=== PATIENT | male | born 1940 | race Caucasian/White ===

== ENCOUNTER → 2016-12-04 | Outpatient (CLI) | payer MEDICARE ==
[2016-12-04 08:37] LABS: Basophils # (A) 0.1 k/uL (0-0.2); Basophils % (A) 1 %; CH 32.7; CHCM 33.8; Eosinophils # (A) 0.5 k/uL (0-0.7); Eosinophils % (A) 7 %; HDW 2.34; HGB 15.9 gm/dL (13.0-17.5); Luc # (Auto) 0.25; Luc % (Auto) 4; Lymphocytes # (A) 2.8 k/uL (1.0-4.8); Lymphocytes % (A) 43 %; MCH 30.9 pg (25.0-35.0); MCHC 31.8 g/dL (31.0-37.0); MCV 97.2 fL (80.0-100.0); Mean Platelet Volume 7.6; Monocytes # (A) 0.3 k/uL (0-1.0); Monocytes % (A) 4 %; Neutrophils # (A) 2.7 k/uL (1.3-7.7); Neutrophils % (A) 42 %; RBC 5.14 m/uL (4.30-5.90); RDW 13.4 % (11.5-15.5); WBC 6.5 k/uL (3.8-10.6); WBC (Perox) 6.32
[2016-12-04 10:50] LABS: ALT 52 U/L (21-72); AST 36 U/L (17-59); Alkaline Phosphatase 110 U/L (38-126); Anion Gap 13 mmol/L; Blood Urea Nitrogen 18 mg/dL (9-20); Calcium 10.2 mg/dL (8.4-10.2); Carbon Dioxide 28 mmol/L (22-30); Chloride 102 mmol/L (98-107); Cholesterol 285 mg/dL (<200); Glucose 92 mg/dL (74-99); HDL Cholesterol 67 mg/dL (40-60); Non-African American GFR(MDRD) >60 (>60 ml/min/1.73 sqM); Potassium 4.6 mmol/L (3.5-5.1); Sodium 143 mmol/L (137-145); Total Bilirubin 0.7 mg/dL (0.2-1.3); Total Protein 7.5 g/dL (6.3-8.2)
[2016-12-04 11:20] LABS: Prostate Specific Antigen 0.25 ng/mL (0.00-4.00)
== END | disposition home or self-care (01) ==
LOC: LABWHC1 08:08
PROVIDERS: ATTEND Internal Medicine
DX: Z00.00 Encounter for general adult medical examination without abnormal findings (principal); N40.0 Benign prostatic hyperplasia without lower urinary tract symptoms; E78.5 Hyperlipidemia, unspecified; I10 Essential (primary) hypertension; E55.9 Vitamin D deficiency, unspecified
CPT/HCPCS: 36415; 80053; 80061; 82306; 84153; 84439; 84443; 85025

== ENCOUNTER → 2017-12-02 | Outpatient (CLI) | payer MEDICARE ==
[2017-12-02 09:34] LABS: Basophils % (A) 1 %; Eosinophils # (A) 0.2 k/uL (0-0.7); Eosinophils % (A) 4 %; HCT 43.5 % (39.0-53.0); HGB 15.1 gm/dL (13.0-17.5); Lymphocytes # (A) 1.9 k/uL (1.0-4.8); Lymphocytes % (A) 45 %; MCH 32.4 pg (25.0-35.0); MCHC 34.8 g/dL (31.0-37.0); MCV 93.2 fL (80.0-100.0); Mean Platelet Volume 7.1; Monocytes # (A) 0.2 k/uL (0-1.0); Monocytes % (A) 5 %; Neutrophils # (A) 1.8 k/uL (1.3-7.7); Neutrophils % (A) 43 %; Platelet Count 204 k/uL (150-450); RBC 4.67 m/uL (4.30-5.90); RDW 12.5 % (11.5-15.5); WBC 4.2 k/uL (3.8-10.6)
[2017-12-02 09:51] LABS: ALT 42 U/L (21-72); AST 35 U/L (17-59); Albumin 4.5 g/dL (3.5-5.0); Alkaline Phosphatase 79 U/L (38-126); Anion Gap 10 mmol/L; Blood Urea Nitrogen 16 mg/dL (9-20); Calcium 9.9 mg/dL (8.4-10.2); Carbon Dioxide 28 mmol/L (22-30); Chloride 103 mmol/L (98-107); Cholesterol 244 mg/dL (<200); Glucose 92 mg/dL (74-99); HDL Cholesterol 77 mg/dL (40-60); LDL Cholesterol,Calculated 128 mg/dL (0-99); Potassium 4.6 mmol/L (3.5-5.1); Sodium 141 mmol/L (137-145); Total Bilirubin 0.7 mg/dL (0.2-1.3); Total Protein 7.4 g/dL (6.3-8.2); Triglycerides 196 mg/dL (<150)
[2017-12-02 10:08] LABS: T4, Free (Free Thyroxine) 0.83 ng/dL (0.78-2.19)
[2017-12-02 10:21] LABS: PSA Annual Screen 0.38 ng/mL (0.00-4.00)
== END | disposition home or self-care (01) ==
LOC: LABWHC1 08:34
PROVIDERS: ATTEND Internal Medicine
DX: E78.5 Hyperlipidemia, unspecified (principal); E03.9 Hypothyroidism, unspecified; Z12.5 Encounter for screening for malignant neoplasm of prostate
CPT/HCPCS: 84439; 80061; 80053; 84443; 85025; 36415; G0103

== ENCOUNTER → 2019-02-03 | Outpatient (CLI) | payer MEDICARE ==
[2019-02-03 10:52] LABS: HCT 45.1 % (39.0-53.0); HGB 15.2 gm/dL (13.0-17.5); MCHC 33.8 g/dL (31.0-37.0); MCV 94.9 fL (80.0-100.0); Mean Platelet Volume 6.9; Platelet Count 230 k/uL (150-450); RBC 4.75 m/uL (4.30-5.90); RDW 12.1 % (11.5-15.5); WBC 5.7 k/uL (3.8-10.6)
[2019-02-03 11:20] LABS: Eosinophils # (M) 0.46 k/uL (0-0.7); Lymphocytes # (M) 2.79 k/uL (1.0-4.8); Monocytes # (M) 0.34 k/uL (0-1.0); Neutrophils % (M) 37 %; Nucleated Red Blood Cells 0 /100 WBC (0-0); Total Cells Counted 100
[2019-02-03 18:33] LABS: African American GFR (CKD) 99.9 (60.0-200.0); Albumin 4.7 g/dL (3.80-4.90); Albumin/Globulin Ratio 2.04 (1.60-3.17); Anion Gap 8.4 mmol/L (4.00-12.00); BUN/Creat Ratio 21.25 Ratio (12.00-20.00); Calcium 9.9 mg/dL (8.7-10.3); Carbon Dioxide 29.6 mmol/L (21.6-31.8); Chol/HDL Ratio 3.5; Globulin 2.3 g/dL (1.6-3.3); LDL Cholesterol,Calculated 134.2 mg/dL (0.0-131.0); Potassium 4.3 mmol/L (3.5-5.5); Total Bilirubin 0.7 mg/dL (0.3-1.2); VLDL Calculation 60.8 mg/dL (5.00-40.00)
[2019-02-03 18:41] LABS: T4, Free (Free Thyroxine) 0.9 ng/dL (0.80-1.80)
[2019-02-03 19:00] LABS: Cyclic Citrull Pep IgG Unit 0.9 U/mL; Cyclic Citrullinated Pep IgG NEGATIVE (NEGATIVE)
[2019-02-03 19:06] LABS: Rheumatoid Factor 71 IU/mL (0-15)
== END | disposition home or self-care (01) ==
LOC: LABWHC1 07:58
PROVIDERS: ATTEND Internal Medicine
DX: Z00.00 Encounter for general adult medical examination without abnormal findings (principal); E78.5 Hyperlipidemia, unspecified; M19.90 Unspecified osteoarthritis, unspecified site; Z12.5 Encounter for screening for malignant neoplasm of prostate
CPT/HCPCS: 84439; 80061; 80053; 84443; 85025; 86431; 86200; 36415; G0103

== ENCOUNTER → 2019-06-17 | Outpatient (CLI) | payer MEDICARE | END | disposition home or self-care (01) | LOC: LABWHC1 07:50 | PROVIDERS: ATTEND Internal Medicine | DX: M10.9 Gout, unspecified (principal) | CPT/HCPCS: 36415; 84550 ==

== ENCOUNTER → 2020-02-10 | Outpatient (CLI) | payer MEDICARE ==
[2020-02-10 08:22] LABS: Basophils % (A) 1 %; Eosinophils # (A) 0.4 k/uL (0-0.7); Eosinophils % (A) 6 %; HCT 50.3 % (39.0-53.0); HGB 16.3 gm/dL (13.0-17.5); Lymphocytes # (A) 2.8 k/uL (1.0-4.8); Lymphocytes % (A) 46 %; MCH 31.5 pg (25.0-35.0); MCHC 32.5 g/dL (31.0-37.0); Mean Platelet Volume 7.9; Monocytes # (A) 0.3 k/uL (0-1.0); Monocytes % (A) 5 %; Neutrophils # (A) 2.5 k/uL (1.3-7.7); Neutrophils % (A) 40 %; Platelet Count 245 k/uL (150-450); RBC 5.18 m/uL (4.30-5.90); RDW 12.5 % (11.5-15.5); WBC 6.2 k/uL (3.8-10.6)
[2020-02-10 10:52] LABS: African American GFR (CKD) 83.2 (60.0-200.0); Albumin 4.7 g/dL (3.80-4.90); Albumin/Globulin Ratio 1.81 (1.60-3.17); Anion Gap 8.1 mmol/L (4.00-12.00); Calcium 10.2 mg/dL (8.7-10.3); Carbon Dioxide 31.9 mmol/L (21.6-31.8); Chol/HDL Ratio 3.77; Globulin 2.6 g/dL (1.6-3.3); LDL Cholesterol,Calculated 133.2 mg/dL (0.0-131.0); Non-African American GFR(CKD) 71.8 (60.0-200.0); Total Bilirubin 0.6 mg/dL (0.2-1.2); Total Protein 7.3 g/dL (6.2-8.2); Uric Acid 7.9 mg/dL (3.7-8.7); VLDL Calculation 60.8 mg/dL (5.00-40.00)
[2020-02-10 11:06] LABS: Prostate Specific Antigen 0.4 ng/mL (0.0-6.5)
== END | disposition home or self-care (01) ==
LOC: LABWHC1 07:28
PROVIDERS: ATTEND Internal Medicine
DX: Z00.00 Encounter for general adult medical examination without abnormal findings (principal); E78.5 Hyperlipidemia, unspecified; M10.9 Gout, unspecified; I10 Essential (primary) hypertension
CPT/HCPCS: 36415; 80053; 80061; 84153; 84550; 85025

== ENCOUNTER 2020-10-17 11:12 | Emergency (ER) | payer MEDICARE ==
[2020-10-17 11:38] VITALS: BP 164/85; PULSE 89; RESP 20; TEMP 98.3
[2020-10-17] MEDS ORDERED: KETOROLAC 15 MG/ML 1 ML VIAL IM STA (12:36)
[2020-10-17] MEDS ORDERED: HYDROmorphone 0.5 MG/0.5 ML SYRINGE IVP STA (12:36)
[2020-10-17] MEDS ORDERED: CYCLOBENZAPRINE 10 MG TAB PO STA (12:37)
--- NOTE | 2020-10-17 12:44 | ED ---
General Adult HPI - General Chief complaint: Back Pain/Injury Stated complaint: Back pain Time Seen by Provider: 10/17/20 12:00 Source: patient, RN notes reviewed, old records reviewed Mode of arrival: ambulatory Limitations: no limitations - History of Present Illness Initial comments: This is a 80-year-old male comes in complaining of right upper back pain that radiates from the upper right back about the scapular area down to the lower ribs on that side. Patient states it all started after he was using a 2 gallon water bottle and was watering with it but using it in the pendulum sort of way swinging it out front of him while he was watering he states after that he started having quite a bit of pain in that area and it is reproducible to touch movement or deep breathing. Patient denies any shortness of breath patient denies any chest pain patient denies any diaphoretic episodes. Patient denies any abdominal pain. Patient denies any recent fever chills or cough. - Related Data Previous Rx's Medication Instructions Recorded Azithromycin [Zithromax Tri-Adin] 500 mg PO DAILY #3 tab 10/17/20 Cyclobenzaprine [Flexeril] 10 mg PO TID #20 tab 10/17/20 Ibuprofen [Motrin] 600 mg PO Q6HR PRN #20 tab 10/17/20 Allergies Allergy/AdvReac Type Severity Reaction Status Date / Time Iodinated Contrast Media Allergy Rash/Hives Verified 10/17/20 11:38 Review of Systems ROS Statement: Those systems with pertinent positive or pertinent negative responses have been documented in the HPI. ROS Other: All systems not noted in ROS Statement are negative. Past Medical History Past Medical History: GERD/Reflux, Hyperlipidemia Additional Past Medical History / Comment(s): Back, enlarge prostate History of Any Multi-Drug Resistant Organisms: None Reported Past Surgical History: Appendectomy Additional Past Surgical History / Comment(s): Sinus Past Psychological History: No Psychological Hx Reported Smoking Status: Never smoker Past Alcohol Use History: None Reported Past Drug Use History: None Reported General Exam - General Exam Comments Initial Comments: GENERAL: Patient is well-developed and well-nourished. Patient is nontoxic and well- hydrated and is in mild distress. ENT: Neck is soft and supple. No significant lymphadenopathy is noted. Oropharynx is clear. Moist mucous membranes. Neck has full range of motion without eliciting any pain EYES: The sclera were anicteric and conjunctiva were pink and moist. Extraocular movements were intact and pupils were equal round and reactive to light. Eyelids were unremarkable. PULMONARY: Unlabored respirations. Good breath sounds bilaterally. No audible rales rhonchi or wheezing was noted. CARDIOVASCULAR: There is a regular rate and rhythm without any murmurs gallops or rubs. Patient has reproducible pain in the right lower posterior thoracic area along the ribs. Patient is comfortable at rest but with movement deep breathing or me palpating causes him the pain that he came in to have us assess. ABDOMEN: Soft and nontender with normal bowel sounds. SKIN: Skin is clear with no lesions or rashes and otherwise unremarkable. NEUROLOGIC: Patient is alert and oriented x3. Cranial nerves II through XII are grossly intact. Motor and sensory are also intact. Normal speech, volume and content. Symmetrical smile. MUSCULOSKELETAL: Normal extremities with adequate strength and full range of motion. LYMPHATICS: No significant lymphadenopathy is noted PSYCHIATRIC: Normal psychiatric evaluation. Limitations: no limitations Course Vital Signs 10/17/20 11:34 Temperature 98.3 F Pulse Rate 89 Respiratory 20 Rate Blood Pressure 164/85 O2 Sat by Pulse 96 Oximetry Medical Decision Making - Medical Decision Making Chest x-ray showed questionable pneumonia particularly on the lateral view. I went back and discussed with the patient he states the last 3 days he has been coughing quite a bit he just thought it was ALLERGIES. Patient states he has no difficult breathing shortness of breath. I decided to give the patient Zithromax and tell him to follow up this week with Dr. Valenzuela for repeat x-ray to see if is any improvement. Patient aware that anything is worsened he is to follow-up with him earlier or come the emergency department. I gave the patient Toradol and Dilaudid in the emergency department as well as Flexeril he feels considerably better. Disposition Clinical Impression: Thoracic back pain, Pneumonia Disposition: HOME SELF-CARE Condition: Good Instructions (If sedation given, give patient instructions): Back Pain (ED) Prescriptions: Cyclobenzaprine [Flexeril] 10 mg PO TID #20 tab Ibuprofen [Motrin] 600 mg PO Q6HR PRN #20 tab PRN Reason: For pain Azithromycin [Zithromax Tri-Adin] 500 mg PO DAILY #3 tab Is patient prescribed a controlled substance at d/c from ED?: No Referrals: Noman Valenzuela MD [Primary Care Provider] - 1-2 days Time of Disposition: 14:02
--- NOTE | 2020-10-17 13:33 | XR ---
EXAMINATION TYPE: XR chest 2V DATE OF EXAM: 10/17/2020 COMPARISON: None HISTORY: 80 year-old male shortness of breath, difficulty breathing, posterior chest/back pain. TECHNIQUE: PA and lateral views FINDINGS: Heart upper limits of normal in size. There is focal posterior basilar consolidation best seen on the lateral view. Mild hyperinflation. No sizable effusion. IMPRESSION: Posterior basilar airspace disease suggestive of pneumonia. Follow-up after treatment to assess for c learance.
== END 2020-10-17 14:09 | disposition home or self-care (01) ==
LOC: EC 11:12
DX: M54.6 Pain in thoracic spine (principal); J18.9 Pneumonia, unspecified organism; E78.5 Hyperlipidemia, unspecified; K21.9 Gastro-esophageal reflux disease without esophagitis; Z79.899 Other long term (current) drug therapy
CPT/HCPCS: 71046; 96374; 96372; 99283; J1885; J1170

== ENCOUNTER 2020-10-21 14:04 | Observation (INO) | payer MEDICARE ==
[2020-10-21] MEDS ORDERED: HEPARIN SODIUM 1,000 UN/ML (10ML VL) IV ONE (14:20)
[2020-10-21] MEDS ORDERED: HEPARIN SODIUM 1,000 UN/ML (10ML VL) IV PRN (14:20)
--- NOTE | 2020-10-21 14:34 | ED ---
General Adult HPI - General Chief complaint: Recheck/Abnormal Lab/Rx Stated complaint: Poss blood clot Time Seen by Provider: 10/21/20 14:17 Source: patient Mode of arrival: wheelchair Limitations: physical limitation - History of Present Illness Initial comments: Dictation was produced using [employer] dictation software. please excuse any grammatical, word or spelling errors. Chief Complaint: 80-year-old male presents to the emergency department for abnormal CT angios the chest History of Present Illness: Patient 80-year-old male he was sent in from radiology for abnormal CT. Patient had a CT performed earlier today that showed pulmonary emboli. Patient was seen in emergency department 4 days ago for chest pain. At that time is assumed that patient's pain was from a musculoskeletal strain. He went to his pulmonology's office he was evaluated. Patient allegedly had some hemoptysis episodes 2 or [address] was ordered. CT showed small filling defects within the second and third order branches of the lower lobes bilaterally. Denies any leg symptoms. No history of cancer. The ROS documented in this emergency department record has been reviewed and confirmed by me. Those systems with pertinent positive or negative responses have been documented in the HPI. All other systems are other negative and/or noncontributory. PHYSICAL EXAM: General Impression: Alert and oriented x3, not in acute distress HEENT: Normocephalic atraumatic, extra-ocular movements intact, pupils equal and reactive to light bilaterally, mucous membranes moist. Cardiovascular: Heart regular rate and rhythm Chest: Able to complete full sentences, no retractions, no tachypnea Abdomen: abdomen soft, non-tender, non-distended, no organomegaly Musculoskeletal: Pulses present and equal in all extremities, no peripheral edema Motor: no focal deficits noted Neurological: CN II-XII grossly intact, no focal motor or sensory deficits noted Skin: Intact with no visualized rashes Psych: Normal affect and mood ED course: 80-year-old male presents to the emergency Department for pulmonary emboli. On arrival are within acceptable limits. Patient is not hypoxic. CT report was reviewed. I bedside patient appears well. He is not hypoxic or showing a signs of respiratory distress. Patient started on heparin.Laboratories unremarkable. Patient be admitted to [facility] with pulmonology on consult. EKG interpretation: Ventricular rate he 5, normal sinus rhythm,. Interval 1:30, QRS 94, QTC 437. No SC prolongation, no QTC prolongation, no ST or T-wave changes noted. Overall, this EKG is unremarkable - Related Data Previous Rx's Medication Instructions Recorded Azithromycin [Zithromax Tri-Adin] 500 mg PO DAILY #3 tab 10/17/20 Cyclobenzaprine [Flexeril] 10 mg PO TID #20 tab 10/17/20 Ibuprofen [Motrin] 600 mg PO Q6HR PRN #20 tab 10/17/20 Allergies Allergy/AdvReac Type Severity Reaction Status Date / Time Iodinated Contrast Media Allergy Rash/Hives Verified 10/21/20 14:12 Review of Systems ROS Statement: Those systems with pertinent positive or pertinent negative responses have been documented in the HPI. ROS Other: All systems not noted in ROS Statement are negative. Past Medical History Past Medical History: GERD/Reflux, Hyperlipidemia, Pulmonary Embolus (PE) Additional Past Medical History / Comment(s): Back, enlarge prostate History of Any Multi-Drug Resistant Organisms: None Reported Past Surgical History: Appendectomy Additional Past Surgical History / Comment(s): Sinus Past Psychological History: No Psychological Hx Reported Smoking Status: Never smoker Past Alcohol Use History: None Reported Past Drug Use History: None Reported General Exam Limitations: physical limitation Course Vital Signs 10/21/20 10/21/20 10/21/20 14:09 14:32 14:51 Temperature 97.9 F Pulse Rate 76 75 80 Respiratory 20 16 18 Rate Blood Pressure 188/96 180/96 185/96 O2 Sat by Pulse 99 99 99 Oximetry Medical Decision Making - Lab Data Result diagrams: 10/21/20 14:43 10/21/20 14:43 Critical Care Time Critical Care Time: Yes Total Critical Care Time: 33 Disposition Clinical Impression: Pulmonary embolism Disposition: ADMITTED IP TO THIS HOSP Condition: Fair Is patient prescribed a controlled substance at d/c from ED?: No
[2020-10-21] MEDS ORDERED: NALOXONE 0.4 MG/ML 1 ML VIAL IV PRN (14:42)
[2020-10-21] MEDS ORDERED: ONDANSETRON 4 MG/2 ML VIAL IVP PRN (14:42)
[2020-10-21] MEDS ORDERED: MORPHINE SULFATE 4 MG/ML SYRINGE IV PRN (14:42)
[2020-10-21] MEDS ORDERED: ACETAMINOPHEN TAB 325 MG TAB PO PRN (14:42)
[2020-10-21] MEDS ORDERED: SODIUM CHLORIDE 0.9% 1,000 ML IV SCH (14:45)
[2020-10-21 14:53] VITALS: RESP 18
[2020-10-21 15:06] LABS: Basophils % (A) 1 %; Eosinophils % (A) 0 %; HCT 40.9 % (39.0-53.0); HGB 13.7 gm/dL (13.0-17.5); Lymphocytes # (A) 0.7 k/uL (1.0-4.8); Lymphocytes % (A) 12 %; MCH 31.1 pg (25.0-35.0); MCHC 33.5 g/dL (31.0-37.0); MCV 92.8 fL (80.0-100.0); Mean Platelet Volume 7.9; Monocytes # (A) 0.2 k/uL (0-1.0); Monocytes % (A) 3 %; Neutrophils % (A) 83 %; Platelet Count 296 k/uL (150-450); RDW 12.1 % (11.5-15.5)
[2020-10-21 15:07] LABS: African American GFR (CKD) >90 (>60 ml/min/1.73 sqM); Anion Gap 11 mmol/L; Blood Urea Nitrogen 14 mg/dL (9-20); Calcium 9.9 mg/dL (8.4-10.2); Carbon Dioxide 28 mmol/L (22-30); Chloride 96 mmol/L (98-107); Glucose 107 mg/dL (74-99); Non-African American GFR(CKD) >90 (>60 ml/min/1.73 sqM); Potassium 4.2 mmol/L (3.5-5.1); Sodium 135 mmol/L (137-145)
[2020-10-21] MEDS: PANTOPRAZOLE 40 MG/10 ML VIAL IV SCH (15:11)
[2020-10-21] MEDS: HEPARIN SOD,PORK IN 0.45% NACL 25,000 UNIT in 0.45% NACL 1 250ML.BAG IV SCH (15:13)
[2020-10-21 15:32] LABS: INR 0.9 (<1.2); Partial Thromboplastin Time 23.6 sec (22.0-30.0); Prothrombin Time 10.2 sec (9.0-12.0)
--- NOTE | 2020-10-21 18:14 | P.HPIM ---
History of Present Illness H&P Date: 10/21/20 Chief Complaint: Abnormal CT and chest the chest Mr. Owen is a 80-year-old male with a past medical history of hyperlipidemia, GERD sending for abnormal CT angios of the chest. Patient states that he was seen by Dr. Love for hemoptysis and he ordered a CT angiographic that chest which was showing pulmonary embolism and so he was advised to go to the ER. Patient is currently in the ER with his and daughter at bedside. He mentions that he started to have pain in the right side of his chest near his scapular area for the past couple of days and he thought it could be due to musculoskeletal strain. He was seen for this in the ER 4 days back and had a chest x-ray that was showing questionable pneumonia, so he was given Zithromax and advised to follow up with Dr. Love. Then he started to have hemodialysis for the past 2-3 days, streaks of blood on the tissue paper when his coughing, so he was seen by Dr. Love and eventually had a CT angios which was showing PE. Patient denies having any fevers, night sweats or weight loss. He never smoked. But his mentions that he worked in an [employer] industry for many years. He denies having any cough or difficulty in breathing. He does complain of pain in the right scapular area that is radiating down to his lumbar region the right side. Patient denies having any blood in his stools. He denies having any abdominal pain nausea vomiting or diarrhea. He denies having any hematuria or dysuria. Patient denies having any history of recent travel. No sick contacts. In the ER at the time of admission temperature of 97.9, heart rate 76, respiratory 20, blood pressure 188/96, saturating at 99% on room air. Reviewing the labs from this morning white count of 6, hemoglobin 13.7, platelets 296. Sodium 135, potassium 4.2, chloride 96, bicarbonate 28, BNP 14, creatinine 0.66. Troponin less than 0.012. CT Michelle of the chest showing filling defects in the second and third order branches within the lower lobes bilaterally compatible with pulmonary embolism. There is patchy infiltrate right lower lobe which may reflect developing infarct. Small right pleural effusion. So the patient is started on a heparin drip and admitted with pulmonary consult. Review of Systems REVIEW OF SYSTEMS: CONSTITUTIONAL: No fever, no malaise, no fatigue. HEENT: No headache, no neck stiffness, no blurring of vision CARDIOVASCULAR: no chest pain or palpitations PULMONARY: As per HPI GASTROINTESTINAL: No Abdominal pain nausea vomiting or diarrhea NEUROLOGICAL: No weakness of extremities HEMATOLOGICAL: Denies any bleeding or petechiae. GENITOURINARY: Denies any burning micturition, frequency, or urgency. MUSCULOSKELETAL/RHEUMATOLOGICAL: Denies any joint pain, swelling, or any muscle pain. ENDOCRINE: Denies polyuria polydipsia or heat or cold intolerance The rest of the 14-point review of systems is negative. Past Medical History Past Medical History: GERD/Reflux, Hyperlipidemia, Pulmonary Embolus (PE) Additional Past Medical History / Comment(s): Back, enlarge prostate History of Any Multi-Drug Resistant Organisms: None Reported Past Surgical History: Appendectomy Additional Past Surgical History / Comment(s): Sinus Past Psychological History: No Psychological Hx Reported Smoking Status: Never smoker Past Alcohol Use History: None Reported Past Drug Use History: None Reported Medications and Allergies Home Medications Medication Instructions Recorded Confirmed Type Acetaminophen/Diphenhydramine 1 tab PO HS PRN 10/21/20 10/21/20 History [Tylenol PM 500-25mg] Aspirin EC [Ecotrin Low Dose] 81 mg PO DAILY 10/21/20 10/21/20 History Dutasteride [Avodart] 0.5 mg PO DAILY 10/21/20 10/21/20 History Ezetimibe [Zetia] 10 mg PO DAILY 10/21/20 10/21/20 History Lansoprazole [Prevacid] 30 mg PO DAILY 10/21/20 10/21/20 History Psyllium Husk 100% [Metamucil 6 gm PO TID 10/21/20 10/21/20 History Packet] Allergies Allergy/AdvReac Type Severity Reaction Status Date / Time Iodinated Contrast Media Allergy Rash/Hives Verified 10/21/20 15:50 Physical Exam Vitals: Vital Signs Temp Pulse Resp BP Pulse Ox 10/21/20 14:51 80 18 185/96 99 10/21/20 14:32 75 16 180/96 99 10/21/20 14:09 97.9 F 76 20 188/96 99 Intake and Output 10/21/20 10/21/20 10/21/20 06:59 14:59 22:59 Other: Weight 73.936 kg PHYSICAL EXAMINATION: GENERAL: no acute distress. Thin gentleman sitting up in bed appears anxious HEENT: Pupils are round and equally reacting to light. EOMI. No scleral icterus. No conjunctival pallor. CARDIOVASCULAR: S1 and S2 present. No murmurs, rubs, or gallops. PULMONARY: Bilateral breath sounds positive. Diminished at the lower lung bases bilaterally. No wheeze or crackles. ABDOMEN: Soft,non -tender, normal bowel sounds. No guarding or rigidity. MUSCULOSKELETAL: No joint swelling or deformity. EXTREMITIES: No edema NEUROLOGICAL: Gross neurological examination did not reveal any focal deficits. SKIN:No rash Results CBC & Chem 7: 10/21/20 14:43 10/21/20 14:43 Labs: Abnormal Lab Results - Last 24 Hours (Table) 10/21/20 10/21/20 Range/Units 14:43 14:43 Lymphocytes # 0.7 L (1.0-4.8) k/uL Sodium 135 L (137-145) mmol/L Chloride 96 L (98-107) mmol/L Glucose 107 H (74-99) mg/dL Assessment and Plan Assessment: ASSESSMENT Acute bilateral pulmonary embolism Right lower lobe infiltrate could be developing infarct GERD Hyperlipidemia History of enlarged prostate PLAN: Acute bilateral PE unclear etiology, no history of recent travel Patient has been started on IV heparin drip with Pulmonary consult Workup for any underlying malignancy to be initiated Patient's home medications have been restarted GI prophylaxis The treatment plan was discussed in detail with the patient's family- and evelyne mercedes at bedside Further recommendations to follow depending on the progress of the patient
[2020-10-21] MEDS: PSYLLIUM HUSK 100% 6 GM PACKET PO SCH (20:30)
[2020-10-21 21:51] VITALS: TEMP 98.2
[2020-10-22 05:12] LABS: Basophils % (A) 0 %; Eosinophils % (A) 1 %; HCT 42.3 % (39.0-53.0); HGB 14.8 gm/dL (13.0-17.5); Lymphocytes # (A) 1.3 k/uL (1.0-4.8); Lymphocytes % (A) 24 %; MCH 32.2 pg (25.0-35.0); MCHC 34.9 g/dL (31.0-37.0); MCV 92.2 fL (80.0-100.0); Monocytes # (A) 0.5 k/uL (0-1.0); Monocytes % (A) 9 %; Neutrophils # (A) 3.3 k/uL (1.3-7.7); Neutrophils % (A) 65 %; Platelet Count 325 k/uL (150-450); RBC 4.59 m/uL (4.30-5.90); RDW 11.6 % (11.5-15.5); WBC 5.2 k/uL (3.8-10.6)
[2020-10-22 05:37] LABS: African American GFR (CKD) >90 (>60 ml/min/1.73 sqM); Anion Gap 10 mmol/L; Blood Urea Nitrogen 16 mg/dL (9-20); Carbon Dioxide 28 mmol/L (22-30); Chloride 100 mmol/L (98-107); Glucose 131 mg/dL (74-99); Non-African American GFR(CKD) >90 (>60 ml/min/1.73 sqM); Potassium 4.9 mmol/L (3.5-5.1); Sodium 138 mmol/L (137-145)
[2020-10-22] MEDS ORDERED: PANTOPRAZOLE 40 MG TABLET PO SCH (07:30)
[2020-10-22] MEDS ORDERED: EZETIMIBE 10 MG TAB PO SCH (09:00)
[2020-10-22] MEDS ORDERED: FINASTERIDE 5 MG TAB PO SCH (09:00)
[2020-10-22] MEDS ORDERED: APIXABAN 5 MG TAB PO SCH (09:24)
--- NOTE | 2020-10-22 09:26 | P.DS ---
Providers Date of admission: 10/21/20 14:42 Attending physician: Zuleika Acosta Consults: 10/21/20 14:44 Consult Physician Routine Consulting Provider: Noman Valenzuela Consult Reason/Comments: PE Do you want consulting provider notified?: Yes Primary care physician: Noman Valenzuela [facility] Course: Mr. Owen is a 80-year-old male with a past medical history of hyperlipidemia, GERD sending for abnormal CT angios of the chest. Patient states that he was seen by Dr. Love for hemoptysis and he ordered a CT angiographic that chest which was showing pulmonary embolism and so he was advised to go to the ER. Patient is currently in the ER with his and daughter at bedside. He mentions that he started to have pain in the right side of his chest near his scapular area for the past couple of days and he thought it could be due to musculoskeletal strain. He was seen for this in the ER 4 days back and had a chest x-ray that was showing questionable pneumonia, so he was given Zithromax and advised to follow up with Dr. Love. Then he started to have hemoptysis for the past 2-3 days, streaks of blood on the tissue paper when his coughing, so he was seen by Dr. Love and eventually had a CT angios which was showing PE. Patient denies having any fevers, night sweats or weight loss. He never smoked. But his mentions that he worked in an [employer] industry for many years. He denies having any cough or difficulty in breathing. He does complain of pain in the right scapular area that is radiating down to his lumbar region the right side. Patient denies having any blood in his stools. He denies having any abdominal pain nausea vomiting or diarrhea. He denies having any hematuria or dysuria. Patient denies having any history of recent travel. No sick contacts. In the ER at the time of admission temperature of 97.9, heart rate 76, respiratory 20, blood pressure 188/96, saturating at 99% on room air. Reviewing the labs from this morning white count of 6, hemoglobin 13.7, platelets 296. Sodium 135, potassium 4.2, chloride 96, bicarbonate 28, BNP 14, creatinine 0.66. Troponin less than 0.012. CT Michelle of the chest showing filling defects in the second and third order branches within the lower lobes bilaterally compatible with pulmonary embolism. There is patchy infiltrate right lower lobe which may reflect developing infarct. Small right pleural effusion. So the patient is started on a heparin drip and admitted with pulmonary consult. 10/22/2020 Patient is medically stable patient has low risk PE all etiology of this pulmonary embolism is unknown patient may need to be on lifelong anticoagulation patient need further workup with the regular cancer screening for procedures as an outpatient including PSA testing. Patient will be evaluated by pulmonary and if cleared by pulmonary patient will be discharged today. Eliquis is covered by his insurance. PHYSICAL EXAMINATION: GENERAL: The patient is alert and oriented x3, not in any acute distress. Well developed, well nourished. HEENT: Pupils are round and equally reacting to light. EOMI. No scleral icterus. No conjunctival pallor. Normocephalic, atraumatic. No pharyngeal erythema. No thyromegaly. CARDIOVASCULAR: S1 and S2 present. No murmurs, rubs, or gallops. PULMONARY: Chest is clear to auscultation, no wheezing or crackles. ABDOMEN: Soft, nontender, nondistended, normoactive bowel sounds. No palpable organomegaly. MUSCULOSKELETAL: No joint swelling or deformity. EXTREMITIES: No cyanosis, clubbing, or pedal edema. NEUROLOGICAL: Gross neurological examination did not reveal any focal deficits. SKIN: No rashes. ASSESSMENT Acute bilateral pulmonary embolism: Etiology is not known may need lifelong anticoagulation, hemodynamically stable. Right lower lobe infiltrate could be developing infarct GERD Hyperlipidemia History of enlarged prostate Patient Condition at Discharge: Fair Plan - Discharge Summary Discharge Rx Participant: No New Discharge Prescriptions: New Apixaban [Eliquis Starter Pack (for VTE)] 0 mg PO DIRECTED 30 Days #1 pack Continue Lansoprazole [Prevacid] 30 mg PO DAILY Ezetimibe [Zetia] 10 mg PO DAILY Acetaminophen/Diphenhydramine [Tylenol PM 500-25mg] 1 tab PO HS PRN PRN Reason: Pain Psyllium Husk 100% [Metamucil Packet] 6 gm PO TID Aspirin EC [Ecotrin Low Dose] 81 mg PO DAILY Dutasteride [Avodart] 0.5 mg PO DAILY Discharge Medication List Acetaminophen/Diphenhydramine [Tylenol PM 500-25mg] 1 tab PO HS PRN 10/21/20 [History] Aspirin EC [Ecotrin Low Dose] 81 mg PO DAILY 10/21/20 [History] Dutasteride [Avodart] 0.5 mg PO DAILY 10/21/20 [History] Ezetimibe [Zetia] 10 mg PO DAILY 10/21/20 [History] Lansoprazole [Prevacid] 30 mg PO DAILY 10/21/20 [History] Psyllium Husk 100% [Metamucil Packet] 6 gm PO TID 10/21/20 [History] Apixaban [Eliquis Starter Pack (for VTE)] 0 mg PO DIRECTED 30 Days #1 pack 10/22/20 [Rx] Follow up Appointment(s)/Referral(s): Noman Valenzuela MD [Primary Care Provider] - 3 Days Patient Instructions/Handouts: Pulmonary Embolism (DC), Safe Use of Anticoagulants (DC) Activity/Diet/Wound Care/Special Instructions: Cost of eliquis is $33.75 per month. Free month coupon given Discharge Disposition: HOME SELF-CARE
[2020-10-22] MEDS: PSYLLIUM HUSK 100% 6 GM PACKET PO SCH (09:30)
[2020-10-22] MEDS: PANTOPRAZOLE 40 MG/10 ML VIAL IV SCH (09:30)
[2020-10-22] MEDS: HEPARIN SOD,PORK IN 0.45% NACL 25,000 UNIT in 0.45% NACL 1 250ML.BAG IV SCH (10:36)
--- NOTE | 2020-10-22 10:58 | P.CNPUL ---
History of Present Illness Consult date: 10/22/20 Reason for consult: pulmonary embolism History of present illness: 80-year-old male patient was having hemoptysis as of the beginning of this week. He was cough and some limited amount of mucus mixed with blood and he was also having some pleuritic chest pain on the right. He contacted our office. He was seen by Dr. Valenzuela following that the patient was referred to the CT angiogram of the chest concern was pulmonary embolism. The CTA was done and it showed filling defects in the second and third order branch is in the lower lobe pulm onary arteries compatible pulmonary embolism. There was also patchy infiltration of the right lower lobe reflecting an infarct and small pleural effusion. The patient is currently doing well. He was initially started on IV heparin. She was transitioned to long-term anticoagulation with Eliquis. No hemoptysis this morning theswelling lower extremities pain or tenderness. No previous history of DVT or pulmonary embolism. No history of malignancy. No recent surgery. No recent travel. No other complaints otherwise for now. No major comorbidities. He is hemodynamically stable on room air oxygen. Awaiting Doppler of the lower extremities. Review of Systems CONSTITUTIONAL: No fever, no malaise, no fatigue. HEENT: No headache, no neck stiffness, no blurring of vision CARDIOVASCULAR: no chest pain or palpitations PULMONARY: As per HPI GASTROINTESTINAL: No Abdominal pain nausea vomiting or diarrhea NEUROLOGICAL: No weakness of extremities HEMATOLOGICAL: Denies any bleeding or petechiae. GENITOURINARY: Denies any burning micturition, frequency, or urgency. MUSCULOSKELETAL/RHEUMATOLOGICAL: Denies any joint pain, swelling, or any muscle pain. ENDOCRINE: Denies polyuria polydipsia or heat or cold intolerance The rest of the 14-point review of systems is negative. Past Medical History Past Medical History: GERD/Reflux, Hyperlipidemia, Pulmonary Embolus (PE) Additional Past Medical History / Comment(s): Back, enlarge prostate History of Any Multi-Drug Resistant Organisms: None Reported Past Surgical History: Appendectomy Additional Past Surgical History / Comment(s): Sinus Past Anesthesia/Blood Transfusion Reactions: No Reported Reaction Additional Past Anesthesia/Blood Transfusion Reaction / Comment(s): Never had blood transfusion Past Psychological History: No Psychological Hx Reported Smoking Status: Never smoker Past Alcohol Use History: None Reported Past Drug Use History: None Reported - Past Family History Mother Family Medical History: COPD Father Family Medical History: Cancer, CVA/TIA Additional Family Medical History / Comment(s): Skin cancer Medications and Allergies Home Medications Medication Instructions Recorded Confirmed Type Acetaminophen/Diphenhydramine 1 tab PO HS PRN 10/21/20 10/21/20 History [Tylenol PM 500-25mg] Aspirin EC [Ecotrin Low Dose] 81 mg PO DAILY 10/21/20 10/21/20 History Dutasteride [Avodart] 0.5 mg PO DAILY 10/21/20 10/21/20 History Ezetimibe [Zetia] 10 mg PO DAILY 10/21/20 10/21/20 History Lansoprazole [Prevacid] 30 mg PO DAILY 10/21/20 10/21/20 History Psyllium Husk 100% [Metamucil 6 gm PO TID 10/21/20 10/21/20 History Packet] Apixaban [Eliquis Starter Pack 0 mg PO DIRECTED 30 Days #1 pack 10/22/20 Rx (for VTE)] Allergies Allergy/AdvReac Type Severity Reaction Status Date / Time Iodinated Contrast Media Allergy Rash/Hives Verified 10/21/20 15:50 egg AdvReac Nausea Verified 10/21/20 18:46 milk AdvReac Nausea Verified 10/21/20 18:46 Physical Exam Vitals: Vital Signs Temp Pulse Pulse Resp BP BP Pulse Ox 10/22/20 04:00 87 18 153/77 99 10/22/20 02:00 80 18 10/22/20 00:00 80 18 155/74 95 10/21/20 20:00 98.2 F 83 18 152/76 96 10/21/20 16:54 97.7 F 89 18 165/81 97 10/21/20 16:00 98.4 F 77 18 169/98 95 10/21/20 14:51 80 18 185/96 99 10/21/20 14:32 75 16 180/96 99 10/21/20 14:09 97.9 F 76 20 188/96 99 Intake and Output 10/21/20 10/22/20 10/22/20 22:59 06:59 14:59 Intake Total 92.934 420 Output Total 175 800 Balance -82.066 -800 420 Intake: Intake, IV Titration 92.934 Amount Heparin Sod,Pork in 0.45% 92.934 NaCl 25,000 unit In 0.45 % NaCl 1 250ml.bag @ 18 UNITS/KG/HR 13.308 mls/hr IV .[id number] [facility] Rx#: [id number] Oral 420 Output: Urine 175 800 Other: # Voids 2 Weight 73.936 kg 70 kg The patient appeared well nourished and normally developed. Vital signs as documented. Head exam is unremarkable. No scleral icterus or corneal arcus noted. Neck is without jugular venous distension, thyromegaly, or carotid bruits. Carotid upstrokes are brisk bilaterally. Lungs are clear to auscultation and percussion. Cardiac exam reveals the PMI to be normally sized and situated. Rhythm is regular. First and second heart sounds normal. No murmurs, rubs or g allops. Abdominal exam reveals normal bowel sounds, no masses, no organomegaly and no aortic enlargement. Extremities are nonedematous and both femoral and pedal pulses are normal. Results - Laboratory Findings CBC and BMP: 10/22/20 04:43 10/22/20 04:43 PT/INR, D-dimer PT 10.2 sec (9.0-12.0) 10/21/20 14:43 INR 0.9 (<1.2) 10/21/20 14:43 Abnormal lab findings: Abnormal Labs 10/21/20 10/21/20 10/21/20 14:43 14:43 21:22 Lymphocytes # 0.7 L APTT 38.1 H Sodium 135 L Chloride 96 L Glucose 107 H 10/22/20 10/22/20 04:43 04:43 Lymphocytes # APTT 46.9 H Sodium Chloride Glucose 131 H - Diagnostic Findings Chest x-ray: image reviewed CT scan - chest: image reviewed Assessment and Plan Plan: 1 acute bilateral unprovoked pulmonary embolism 2 hemoptysis likely secondary to pulmonary embolism, pulmonary infarct 3 BPH 4 hyperlipidemia Plan Patient is unprovoked pulmonary embolism. The patient was initially started on IV heparin and the patient got moved and transitioned to oral Eliquis. We'll obtain Doppler lower extremity. He is extremely hemodynamically stable. No signs of any right ventricular failure or strain. This is based on the CAT scan findings. Patient can be discharged home today. Anticipate some limited hemoptysis and this should subside over the next 24-48 hours. Was seen back in the office early next week. Diagnosis was explained. He is functional. No issues for now.
--- NOTE | 2020-10-22 13:39 | US ---
EXAMINATION TYPE: US venous doppler duplex LE DATE OF EXAM: 10/22/2020 11:35 AM COMPARISON: NONE CLINICAL HISTORY: Pulmonary embolism seen on CT chest 10/21/2020. SIDE PERFORMED: Bilateral TECHNIQUE: The lower extremity deep venous system is examined utilizing real time linear array sonog kathy with graded compression, doppler sonography and color-flow sonography. VESSELS IMAGED: Common Femoral Vein Deep Femoral Vein Greater Saphenous Vein * Femoral Vein Popliteal Vein Small Saphenous Vein * Proximal Calf Veins (* superficial vessels) Right Leg: Sonographic compressibility and flow are demonstrated in the imaged veins of the right lo wer extremity. Left Leg: Sonographic compressibility and flow are demonstrated in the imaged veins of the right low er extremity. IMPRESSION: No sonographic evidence for deep venous thrombosis.
[2020-10-22 14:02] VITALS: BP 166/84; PULSE 82
== END 2020-10-22 14:32 | disposition home or self-care (01) ==
LOC: EC 14:04 → 3SCARD 14:42 → INTOOBSV 14:42 → 3SCARD 16:22 → UNDODISIN 10-22 14:32
PROVIDERS: ADMIT Internal Medicine; ATTEND Internal Medicine
DX: I26.99 Other pulmonary embolism without acute cor pulmonale (principal); N40.0 Benign prostatic hyperplasia without lower urinary tract symptoms; K21.9 Gastro-esophageal reflux disease without esophagitis; R91.8 Other nonspecific abnormal finding of lung field; E78.5 Hyperlipidemia, unspecified; Z79.82 Long term (current) use of aspirin; Z79.899 Other long term (current) drug therapy; Z91.041 Radiographic dye allergy status; Z91.012 Allergy to eggs; Z91.011 Allergy to milk products; Z90.49 Acquired absence of other specified parts of digestive tract; Z98.890 Other specified postprocedural states; Z82.5 Family history of asthma and other chronic lower respiratory diseases; Z80.8 Family history of malignant neoplasm of other organs or systems; Z82.3 Family history of stroke
CPT/HCPCS: 96376 ×2; 96366 ×3; 96365; 96375; 99291; 36415; 93005; 86900; 86901; 80048 ×2; 83605; 84484; 85025 ×2; 85610; 85730 ×2; 86850; 93970; G0378 ×2; S0138; J1644 ×2; C9113 ×2

== ENCOUNTER → 2020-10-21 | Outpatient (CLI) | payer MEDICARE | END | disposition home or self-care (01) ==

== ENCOUNTER → 2021-02-17 | Outpatient (CLI) | payer MEDICARE ==
[2021-02-17 16:39] LABS: Basophils # (A) 0.03 X 10*3/uL (0.00-0.10); Basophils % (A) 0.6 %; Eosinophils # (A) 0.11 X 10*3/uL (0.04-0.35); Eosinophils % (A) 2.1 %; HCT 46.5 % (39.6-50.0); HGB 15.2 g/dL (13.0-17.0); Lymphocytes # (A) 2.37 X 10*3/uL (0.90-5.00); Lymphocytes % (A) 46.2 %; MCH 30.8 pg (27.0-32.0); MCHC 32.7 g/dL (32.0-37.0); MCV 94.3 fL (80.0-97.0); Mean Platelet Volume 10.4 fL (9.5-12.2); Monocytes # (A) 0.33 X 10*3/uL (0.20-1.00); Monocytes % (A) 6.4 %; Neutrophils # (A) 2.28 X 10*3/uL (1.80-7.70); Neutrophils % (A) 44.5 %; Platelet Count 238 X 10*3/uL (140-440); RBC 4.93 X 10*6/uL (4.40-5.60); RDW 12.2 % (11.5-14.5); WBC 5.13 X 10*3/uL (4.50-10.00)
[2021-02-17 18:19] LABS: African American GFR (CKD) 93.8 (60.0-200.0); Albumin 4.7 g/dL (3.8-4.9); Albumin/Globulin Ratio 1.74 (1.60-3.17); Anion Gap 13.2 mmol/L (4.00-12.00); BUN/Creat Ratio 17.67 Ratio (12.00-20.00); Blood Urea Nitrogen 15.9 mg/dL (9.0-27.0); Calcium 9.9 mg/dL (8.7-10.3); Carbon Dioxide 26.8 mmol/L (21.6-31.8); Chol/HDL Ratio 3.87 Ratio; Globulin 2.7 g/dL (1.6-3.3); HDL Cholesterol 71.3 mg/dL (40.00-60.00); LDL Cholesterol,Calculated 143.3 mg/dL (0.0-131.0); Non-African American GFR(CKD) 80.9 (60.0-200.0); Potassium 4.6 mmol/L (3.5-5.5); Prostate Specific Antigen 0.5 ng/mL (0.00-6.50); T4, Free (Free Thyroxine) 1.03 ng/dL (0.800-1.800); Total Bilirubin 0.6 mg/dL (0.30-1.20); Total Protein 7.4 g/dL (6.2-8.2); VLDL Calculation 61.4 mg/dL (5.00-40.00)
== END | disposition home or self-care (01) ==
LOC: LABWHC1 08:47
PROVIDERS: ATTEND Internal Medicine
DX: Z00.00 Encounter for general adult medical examination without abnormal findings (principal); I10 Essential (primary) hypertension; E78.5 Hyperlipidemia, unspecified; E55.9 Vitamin D deficiency, unspecified
CPT/HCPCS: 36415; 80053; 80061; 82306; 84153; 84439; 84443; 85025

== ENCOUNTER 2021-11-22 09:13 | Day surgery (SDC) | payer MEDICARE ==
[2021-11-17 15:19] VITALS: BMI 22.4
[~2021-11-22 09:13] MED LIST: FAMOTIDINE 20 MG/2 ML VIAL IV PRN; LACTATED RINGERS 1,000 ML IV SCH
[2021-11-22 09:44] VITALS: RESP 18; TEMP 98.8
[2021-11-22] MEDS ORDERED: ONDANSETRON 4 MG/2 ML VIAL ONE (09:54)
[2021-11-22] MEDS ORDERED: LIDOCAINE 1% (10MG/ML) FOR IV START INTRADERMA ONE (10:01)
[2021-11-22] MEDS ORDERED: PROPOFOL 10 MG/ML 20 ML VIAL IV ONE (10:44)
[2021-11-22] MEDS ORDERED: fentaNYL (PF) 50 MCG/ML 2 ML AMP ONE (10:44)
[2021-11-22] MEDS ORDERED: LIDOCAINE 1%-EPI 1:100,000 20 ML VIAL SQ ONE ×2 (11:27)
[2021-11-22] MEDS ORDERED: BACITRACIN ZINC 500 UNIT/GM OINT 28.4 GM TUBE TOPICAL ONE (12:15)
--- NOTE | 2021-11-22 12:31 | P.OP ---
Date of Procedure: 11/22/21 Preoperative Diagnosis: Right temporal skin lesion Right anterior Hindu skin lesion Right frontal scalp lesion Postoperative Diagnosis: Same Procedure(s) Performed: Excision right temporal skin lesion 2.1 x 2.3 cm with frozen section Rhomboid local advancement reconstruction flap of right temporal defect with primary defect of 2.1 x 2.3 cm and secondary defect at 2.5 x 2.7 cm Excision right anterior Hindu skin lesion 1.3 cm with layered closure Shave excision right frontal scalp skin lesion 1.1 cm Anesthesia: MAC Surgeon: Vu Garcia Estimated Blood Loss (ml): 3 Pathology: other (Right amish, right anterior Hindu, right frontal scalp skin lesions) Condition: stable Disposition: PACU Indications for Procedure: This 81-year-old white male who has 3 different skin lesions noted to be gradually enlarging. The right anterior Hindu skin lesion was pointed out today. He would like to have excised also. This was small light brown and round Operative Findings: Raised brown skin lesions right anterior Hindu and right frontal scalp most consistent with seborrheic keratosis, right amish skin lesion which was pink raised nodular with ulcerative Center which was basal cell carcinoma on frozen section with negative margins but close at the deep margin and therefore additional deep margin was taken for permanent section Description of Procedure: The patient was brought in the operative suite and placed in a supine position. The patient underwent induction of IV sedation after appropriate monitors were placed. The patient was prepped and draped in the usual aseptic fashion. 1% lidocaine with 1 100,000 epinephrine was infused subcutaneously and field block fashion at all 3 sites. This was left to work for 7 minutes vasoconstrictive effect. The frontal scalp lesion was excised with shave excision technique grossly entirely and hemostasis gained with electrocautery. This was dressed with bacitracin ointment. The anterior right amish skin lesion was excised in elliptical fashion in the direction of the relaxed skin tension lines down to the subcutaneous fat layer. Hemostasis gained with electrocautery and the wound was closed with subcutaneous layer with inverted interrupted vital Vicryl suture skin closed with simple interrupted 5-0 Prolene suture. Bacitracin ointment was placed. The right amish skin lesion was then excised grossly entirely down to the subcutaneous fat layer. This was sent for frozen section with margins noted as above an additional deep margin taken for additional permanent section. Due to the size and location of this lesion a rhomboid flap which was based posteriorly was raised in the same level and size down to the subcutaneous fat layer and was rotated and advanced into position with the primary and secondary defect then closed with inverted interrupted 4-0 Vicryl suture skin closed with running locking and simple interrupted 5-0 Prolene suture. Bacitracin ointment and sterile dressings were placed. The patient was then allowed to emerge from anesthesia having tolerated procedure well was transferred to postop recovery area in satisfactory condition.
[2021-11-22 12:50] VITALS: BP 151/81; PULSE 69
== END 2021-11-22 13:15 | disposition home or self-care (01) ==
LOC: OR 09:13
PROVIDERS: ATTEND Otolaryngology
DX: C44.319 Basal cell carcinoma of skin of other parts of face (principal); L82.1 Other seborrheic keratosis; L57.0 Actinic keratosis; J44.9 Chronic obstructive pulmonary disease, unspecified; I10 Essential (primary) hypertension; I05.9 Rheumatic mitral valve disease, unspecified; Z86.711 Personal history of pulmonary embolism; K21.9 Gastro-esophageal reflux disease without esophagitis; Z91.041 Radiographic dye allergy status; Z91.012 Allergy to eggs; Z91.011 Allergy to milk products; Z79.01 Long term (current) use of anticoagulants; Z79.899 Other long term (current) drug therapy; Z82.3 Family history of stroke; Z83.6 Family history of other diseases of the respiratory system; Z80.8 Family history of malignant neoplasm of other organs or systems
CPT/HCPCS: 88305; 88331; 88332; 11307; 14040; J0690; J2405; J3010; J2704

== ENCOUNTER → 2022-05-08 | Outpatient (CLI) | payer MEDICARE ==
[2022-05-08 14:46] LABS: Basophils # (A) 0.03 X 10*3/uL (0.00-0.10); Basophils % (A) 0.6 %; Eosinophils # (A) 0.15 X 10*3/uL (0.04-0.35); Eosinophils % (A) 2.8 %; HCT 45.3 % (39.6-50.0); HGB 15.1 g/dL (13.0-17.0); Immature Grans, Automated 0.4 %; Lymphocytes # (A) 2.69 X 10*3/uL (0.90-5.00); Lymphocytes % (A) 49.5 %; MCH 31.5 pg (27.0-32.0); MCHC 33.3 g/dL (32.0-37.0); MCV 94.6 fL (80.0-97.0); Mean Platelet Volume 10.7 fL (9.5-12.2); Monocytes # (A) 0.42 X 10*3/uL (0.20-1.00); Monocytes % (A) 7.7 %; NRBC Per 100 WBC 0 /100 WBCS (0.0-0.0); Neutrophils # (A) 2.12 X 10*3/uL (1.80-7.70); Platelet Count 283 X 10*3/uL (140-440); RBC 4.79 X 10*6/uL (4.40-5.60); RDW 12.8 % (11.5-14.5); WBC 5.43 X 10*3/uL (4.50-10.00)
[2022-05-08 16:03] LABS: ALT 30 U/L (10-49); AST 29 U/L (14-35); African American GFR (CKD) 92.5 (60.0-200.0); Albumin 4.7 g/dL (3.8-4.9); Albumin/Globulin Ratio 1.68 (1.60-3.17); Alkaline Phosphatase 96 U/L (41-126); BUN/Creat Ratio 17.56 Ratio (12.00-20.00); Blood Urea Nitrogen 15.8 mg/dL (9.0-27.0); Calcium 10.1 mg/dL (8.7-10.3); Chloride 99 mmol/L (96-109); Chol/HDL Ratio 3.49 Ratio; Globulin 2.8 g/dL (1.6-3.3); Glucose 92 mg/dL (70-110); LDL Cholesterol,Calculated 131.8 mg/dL (0.0-131.0); Non-African American GFR(CKD) 79.8 (60.0-200.0); Potassium 5.1 mmol/L (3.5-5.5); Sodium 137 mmol/L (135-145); Total Protein 7.5 g/dL (6.2-8.2)
== END | disposition home or self-care (01) ==
LOC: LABWHC1 08:34
PROVIDERS: ATTEND Internal Medicine
DX: Z12.5 Encounter for screening for malignant neoplasm of prostate (principal); I10 Essential (primary) hypertension; E78.5 Hyperlipidemia, unspecified; E55.9 Vitamin D deficiency, unspecified
CPT/HCPCS: 36415; 80053; 80061; 82306; 84153; 84439; 84443; 85025

== ENCOUNTER → 2023-06-25 | Outpatient (CLI) | payer MEDICARE ==
[2023-06-25 10:04] LABS: Appearance,Urine Clear (Clear); Bilirubin,Urine Negative (Negative); Blood,Urine Negative (Negative); Color,Urine Colorless; Glucose,Urine (UA) Negative (Negative); Ketones,Urine Negative (Negative); Leukocyte Esterase,Urine Negative (Negative); Nitrite,Urine Negative (Negative); Protein,Urine Negative (Negative); Specific Gravity,Urine 1.007 (1.001-1.035); Urobilinogen,Urine <2.0 mg/dL (<2.0)
[2023-06-25 16:31] LABS: Basophils # (A) 0.03 X 10*3/uL (0.00-0.10); Basophils % (A) 0.6 %; Eosinophils # (A) 0.09 X 10*3/uL (0.04-0.35); Eosinophils % (A) 1.9 %; HGB 14.9 g/dL (13.0-17.0); Lymphocytes # (A) 2.08 X 10*3/uL (0.90-5.00); Lymphocytes % (A) 43.5 %; MCH 31.8 pg (27.0-32.0); MCHC 33.9 g/dL (32.0-37.0); MCV 93.8 FL (80.0-97.0); Mean Platelet Volume 10.2 FL (9.5-12.2); Monocytes # (A) 0.37 X 10*3/uL (0.20-1.00); Monocytes % (A) 7.7 %; NRBC Per 100 WBC 0 X 10*3/uL (0.00-0.01); Neutrophils # (A) 2.19 X 10*3/uL (1.80-7.70); Neutrophils % (A) 45.9 %; Platelet Count 273 X 10*3/uL (140-440); RBC 4.69 X 10*6/uL (4.40-5.60); RDW 12.3 % (11.5-14.5); WBC 4.78 X 10*3/uL (4.50-10.00)
[2023-06-25 16:44] LABS: Erythrocyte Sedimentation Rate 11 mm/Hr (0-20)
[2023-06-25 16:53] LABS: ALT 20 U/L (10-49); AST 23 U/L (14-35); Albumin 4.8 g/dL (3.8-4.9); Albumin/Globulin Ratio 1.66 Ratio (1.60-3.17); Alkaline Phosphatase 84 U/L (41-126); BUN/Creat Ratio 14.75 Ratio (12.00-20.00); Blood Urea Nitrogen 11.8 mg/dL (9.0-27.0); Calcium 10.6 mg/dL (8.7-10.3); Carbon Dioxide 28.3 mmol/L (21.6-31.8); Chloride 96 mmol/L (96-109); Chol/HDL Ratio 2.88 Ratio; Globulin 2.9 g/dL (1.6-3.3); Glucose 98 mg/dL (70-110); Potassium 4.9 mmol/L (3.5-5.5); Rheumatoid Factor, Qnt 52 IU/mL (0-15); Sodium 136 mmol/L (135-145); T4, Free (Free Thyroxine) 1.22 ng/dL (0.80-1.80); Total Bilirubin 0.6 mg/dL (0.3-1.2); Total Protein 7.7 g/dL (6.2-8.2)
[2023-06-25 16:54] LABS: PSA Annual Screen 0.264 ng/mL (0.000-4.000)
== END | disposition home or self-care (01) ==
LOC: LABWHC1 08:26
PROVIDERS: ATTEND Internal Medicine
DX: Z12.5 Encounter for screening for malignant neoplasm of prostate (principal); I10 Essential (primary) hypertension; E78.5 Hyperlipidemia, unspecified; N39.0 Urinary tract infection, site not specified; M19.90 Unspecified osteoarthritis, unspecified site
CPT/HCPCS: 84439; 80061; 80053; 85652; 84443; 85025; 86431; 81003; 86038; 36415; G0103

== ENCOUNTER → 2024-06-19 | Outpatient (CLI) | payer MEDICARE ==
--- NOTE | 2024-06-19 10:12 | US ---
EXAMINATION TYPE: US groin RT DATE OF EXAM: 06/19/2024 COMPARISON: NONE CLINICAL INDICATION: Male, 84 years old with history of R19.00 INTRA-ABD AND PELVIC SWELLING; Right g roin palpable x 1+ years Absent: Multiple grayscale and color Doppler ultrasound images of the right groin at the patient's re gion of palpable abnormality were obtained. Additional comparison study left groin was obtained. FINDINGS/IMPRESSION: Within the right groin is a well-circumscribed thin-walled cystic fluid collecti on with posterior acoustic enhancement measuring 2.2 x 1.1 x 2.3 cm. No internal color flow or hypere john identified to suggest abscess or malignant process. There is a prominent left inguinal lymph node identified measuring 1.7 x 0.8 x 1.0 cm. Appears benign. [facility], , 06/19/2024 10:09 AM
== END | disposition home or self-care (01) ==
LOC: RADUSWWP 09:33
PROVIDERS: ATTEND Internal Medicine
DX: R19.09 Other intra-abdominal and pelvic swelling, mass and lump (principal)

== ENCOUNTER → 2024-06-25 | Outpatient (CLI) | payer MEDICARE ==
[2024-06-25 14:50] LABS: HCT 45.1 % (39.6-50.0); HGB 15.3 g/dL (13.0-17.0); MCH 32.5 pg (27.0-32.0); MCHC 33.9 g/dL (32.0-37.0); MCV 95.8 FL (80.0-97.0); Mean Platelet Volume 10.4 FL (9.5-12.2); NRBC Per 100 WBC 0 X 10*3/uL (0.00-0.01); Platelet Count 300 X 10*3/uL (140-440); RBC 4.71 X 10*6/uL (4.40-5.60); RDW 12.3 % (11.5-14.5); WBC 4.95 X 10*3/uL (4.50-10.00)
[2024-06-25 14:51] LABS: Basophils # (A) 0.04 X 10*3/uL (0.00-0.10); Basophils % (A) 0.8 %; Eosinophils # (A) 0.16 X 10*3/uL (0.04-0.35); Eosinophils % (A) 3.2 %; Lymphocytes # (A) 2.26 X 10*3/uL (0.90-5.00); Lymphocytes % (A) 45.7 %; Monocytes # (A) 0.44 X 10*3/uL (0.20-1.00); Monocytes % (A) 8.9 %; Neutrophils # (A) 2.04 X 10*3/uL (1.80-7.70); Neutrophils % (A) 41.2 %
[2024-06-25 15:26] LABS: ALT 25 U/L (10-49); AST 25 U/L (14-35); Albumin 4.7 g/dL (3.8-4.9); Albumin/Globulin Ratio 1.74 Ratio (1.60-3.17); Alkaline Phosphatase 97 U/L (41-126); BUN/Creat Ratio 14.38 Ratio (12.00-20.00); Blood Urea Nitrogen 11.5 mg/dL (9.0-27.0); Calcium 10.5 mg/dL (8.7-10.3); Carbon Dioxide 26.6 mmol/L (21.6-31.8); Chloride 98 mmol/L (96-109); Chol/HDL Ratio 3.34 Ratio; Globulin 2.7 g/dL (1.6-3.3); Glucose 95 mg/dL (70-110); LDL Cholesterol,Calculated 133.6 mg/dL (0.0-131.0); Potassium 4.7 mmol/L (3.5-5.5); Prostate Specific Antigen 0.28 ng/mL (0.000-6.500); Sodium 138 mmol/L (135-145); T4, Free (Free Thyroxine) 1.18 ng/dL (0.80-1.80); Total Bilirubin 0.5 mg/dL (0.3-1.2); Total Protein 7.4 g/dL (6.2-8.2)
== END | disposition home or self-care (01) ==
LOC: LABWHC1 08:14
PROVIDERS: ATTEND Internal Medicine
DX: Z00.00 Encounter for general adult medical examination without abnormal findings (principal)
CPT/HCPCS: 36415; 80053; 80061; 83036; 84153; 84439; 84443; 85025

== ENCOUNTER → 2024-07-09 | Outpatient (CLI) | payer MEDICARE ==
--- NOTE | 2024-07-09 13:36 | CT ---
EXAMINATION TYPE: CT pelvis wo con DATE OF EXAM: 07/09/2024 COMPARISON: Right groin ultrasound June 19, 2024 CLINICAL INDICATION: Male, 84 years old with history of R19.09 RIGHT GROIN MASS; PHH, Right groin roseann n CT DLP: 414 mGycm Automated exposure control for dose reduction was used. FINDINGS: Corresponding to ultrasound in the medial right groin there is a small thin-walled fluid collection m easuring 2.1 x 1.8 cm image 42. Just inferior to this there is a tubular-shaped soft tissue structure of uncertain etiology. Visualized pelvis shows no abnormal bowel dilatation. There is moderate colonic fecal prominence. Pro state gland is normal in size with central calcifications. Moderate degenerative change of both hips is seen. There is moderate to severe disc space narrowing with vacuum disc phenomenon at the lumbosac ral junction. IMPRESSION: SMALL 2.1 CM RIGHT GROIN FLUID COLLECTION OF UNCERTAIN ETIOLOGY POSSIBLE SEROMA OR HEMATOMA. THERE IS A SMALLER TUBULAR SHAPED SOFT TISSUE DENSITY INFERIOR AND LATERAL TO THIS OF UNCERTAIN ETIOLOGY [facility], , 07/09/2024 1:33 PM
== END | disposition home or self-care (01) ==
LOC: RADCTMAIN 10:49
PROVIDERS: ATTEND Surgery
DX: R19.09 Other intra-abdominal and pelvic swelling, mass and lump (principal); J98.4 Other disorders of lung
CPT/HCPCS: 72192